=== PATIENT | female | born 2000 | race Caucasian/White ===

== ENCOUNTER 2022-01-01 13:42 | Observation (INO) | payer BC, OTHER, SELFPAY ==
[2022-01-01] VITALS (43 sets, daily range): BP systolic 114–141; BP diastolic 52–83; PULSE 98–125; TEMP 36.7; O2SAT 95–100
--- NOTE | 2022-01-01 14:18 | OBADM ---
This patient, Sonia Clifton, admitted to the OB room OB Post 115 for observation. Patient/family oriented to hospital policies and general routines including ID bracelet, bed and alarms, visiting hours, pain management, procedures, bathroom and other care routines, personal items, smoking policy, room service/diet, and visiting hours. Patient/Family are encouraged to report perceived risks to care and to ask questions if they do not understand what they are told or what they should do.
[2022-01-01 15:01] LABS: Add Urine Microscopic? YES; Appearance Urine Cloudy (Clear); Bacteria Urine Trace /hpf; Bilirubin Urine Negative (Negative); Blood Urine Negative (Negative); Color Urine Yellow (Yellow); Glucose Urine UA Negative (Negative); Ketones Urine 2+ mg/dL (Negative); Leukocyte Esterase Ur Negative LEU/UL (Negative); Mucus Urine Rare /lpf; Nitrate Urine Negative (Negative); Protein Urine Negative (Negative); RBC Urine 0-2 /hpf (0-2); Specific Grav Ur 1.016 (1.001-1.035); Squamous Epithelial Cell Urine Few /hpf (Few); Urobilinogen Urine Negative mg/dL (<2.0); WBC Urine 0-3 /hpf
--- NOTE | 2022-01-01 15:25 | PC.NURSE ---
Called Dr. Bassam Manning and gave report on pt including pt complaint of pelvic pressure, contractions, FHR, and Urine result. Orders for SVE and Fibronectin. Orders to d/c patient if he cervix is closed and orders to call him if cervix is not closed.
--- NOTE | 2022-01-01 16:12 | PC.NURSE ---
Called Dr. Bassam Manning with SVE. Orders for 1 dose of terbutaline
--- NOTE | 2022-01-01 16:26 | PC.NURSE ---
Held terbutaline due to patients HR of 120s and called Dr. Bassam Manning to see if he wanted it given still
[2022-01-01 16:44] LABS: Fetal Fibronectin Negative
--- NOTE | 2022-01-01 16:54 | PC.NURSE ---
paged Dr. Bassam Manning again. Have not heard back from.
--- NOTE | 2022-01-01 16:56 | PC.NURSE ---
Orders to hold terbulatine and give 10 mg Procardia.
[2022-01-01] MEDS: NIFEdipine 10 MG CAPSULE PO (17:00)
--- NOTE | 2022-01-01 18:27 | PC.NURSE ---
Dr. Bassam Manning called for update. Reported that Pt has had 1 contraction with irritability on monitor that is displaying for 15 minutes. Orders to d/c patient and to call tomorrow morning to schedule an appointment for this week. Orders for pelvic rest.
--- NOTE | 2022-01-04 07:18 | PM.OBTRLD ---
OB - Triage/Final Diagnosis Visit Information Reason for evaluation: threatened labor Comments/Additional reasons for admission: I have assessed the risk for this patient, Sonia Clifton, and determined that she would benefit from observation care. Evaluation Laboratory results: Laboratory Tests 01/01/22 01/01/22 14:08 16:08 Urine Color Yellow Urine Appearance Cloudy H Urine pH 7.0 Ur Specific [place] 1.016 Urine Protein Negative Urine Glucose (UA) Negative Urine Ketones 2+ H Ur Blood (Man) Negative Urine Nitrate Negative Urine Bilirubin Negative Urine Urobilinogen Negative Leukocyte Esterase Rfl Negative Urine RBC 0-2 Urine WBC 0-3 Ur Squamous Epith Cells Few Urine Bacteria Trace Urine Mucus Rare Fibronectin Negative
== END 2022-01-01 18:34 | disposition home or self-care (01) ==
PROVIDERS: Admitting Provider Obstetrics & Gynecology; Visit Provider Obstetrics & Gynecology
DX: O47.9 False labor, unspecified (principal); Z3A.00 Weeks of gestation of pregnancy not specified
CPT/HCPCS: 81001; 82731; A9270; G0378; G0379

== ENCOUNTER 2022-01-01 23:16 | Observation (INO) | payer BC, OTHER, SELFPAY ==
[2022-01-02] MEDS: DEXTROSE 5%/LACTATED RINGERS 1,000 ML 999 ML IV CONT (00:33)
[2022-01-02] MEDS: NIFEdipine 10 MG CAPSULE PO (00:33)
[2022-01-02 00:36] VITALS: BP 134/70; PULSE 104
--- NOTE | 2022-01-02 00:59 | PC.NURSE ---
0009- paged Dr. Barber [phone]- Dr. Barber returned page. informed of pt admission. pt c/o contractions that have continued since leaving here at 1830. pt increased fluids at home and laid on her side and still was uncomfortable. orders received for IV, 1 liter D5LR bolus, procardia 10mg po. if contractions subside and pt feeling better, order received to d/c home.
[2022-01-02 01:32] VITALS: BP 128/52; PULSE 120
--- NOTE | 2022-01-02 01:37 | OBADM ---
This patient, Sonia Clifton, admitted to the OB room OB Post 117 for observation. Patient/family oriented to hospital policies and general routines including ID bracelet, bed and alarms, visiting hours, pain management, procedures, bathroom and other care routines, personal items, smoking policy, room service/diet, and visiting hours. Patient/Family are encouraged to report perceived risks to care and to ask questions if they do not understand what they are told or what they should do.
[2022-01-02 01:44] VITALS: BMI 44.3
--- NOTE | 2022-01-25 12:32 | PM.OBTRLD ---
OB - Triage/Final Diagnosis Visit Information Comments/Additional reasons for admission: I have assessed the risk for this patient, Sonia Clifton, and determined that she would benefit from observation care. Final Diagnosis (1) False labor: Code(s): O47.9 - False labor, unspecified Status: Acute
== END 2022-01-02 02:15 | disposition home or self-care (01) ==
PROVIDERS: Admitting Provider Obstetrics & Gynecology; Visit Provider Obstetrics & Gynecology
DX: O47.03 False labor before 37 completed weeks of gestation, third trimester (principal); Z3A.34 34 weeks gestation of pregnancy
CPT/HCPCS: 96360; A9270; G0378; G0379; J7121

== ENCOUNTER 2022-02-02 05:01 | Inpatient (IN) | payer OTHER, SELFPAY ==
[2022-02-02] VITALS (205 sets, daily range): BP systolic 99–149; BP diastolic 21–97; PULSE 76–140; TEMP 36.3–37.3; O2SAT 76–100; BMI 45.6
--- NOTE | 2022-02-02 05:19 | LDADM ---
This patient, Sonia Clifton, was admitted to Labor/Delivery/Recovery 105 on 02/02/22 at 05:01. Plans for labor, pain management and were discussed with patient. Patient/family oriented to hospital policies and general routines including ID bracelet, bed and alarms, visiting hours, pain management, procedures, bathroom and other care routines, personal items, smoking policy, room service/diet and guest tray routines, infant security routines, and visiting hours. Patient/Family are encouraged to report perceived risks to care and to ask questions if they do not understand what they are told or what they should do. See OBIX for further documentation.
[2022-02-02] MEDS: LACTATED RINGERS 1,000 ML 125 ML IV CONT (05:59)
--- NOTE | 2022-02-02 06:03 | PM.IMHP ---
H&P: HPI History of Present Illness Date/Time: 02/02/22 06:03 Chief Complaint: this is a 21-year-old for induction at term Narrative: patient is a 21-year-old para 0 39 weeks gestation with last menstrual period of 05/04/2021, EDC of 1212. This is an induction for were convenience as her boyfriend is a deployed and was not able to get back for this procedure. Risks and benefits reviewed [facility] Social History Social History Smoking status: Never smoker Substance use: never Lack of Transportation: No Lack of Food: Never True Current Housing: I Do Not Have Housing Concerned About Future Housing: No Difficulty Paying Gas/Electric Bills: No Difficulty Paying for Meds: No Currently Unemployed: No Education: High School Diploma/GED Difficulty w/ Childcare or Family Care: No Spiritual care concerns: No Meds Home Medications and Allergies Home Medications Medication Instructions Recorded Confirmed Type No Home Medications 01/01/22 01/01/22 History Allergies Allergy/AdvReac Type Severity Reaction Status Date / Time morphine AdvReac Nausea and Verified 01/01/22 14:14 Vomiting Vital Signs Vital Signs - 24 hr 02/02/22 05:18 Oxygen Delivery Room Air Exam Const: General: cooperative, healthy appearing and comfortable Nutritional Appearance: average body habitus Orientation/consciousness: oriented to person, oriented to place and oriented to time HENMT: Head: normal to inspection Resp: Effort & Inspection: normal respiratory effort Cardio: Rate: regular rate Rhythm: regular rhythm Heart sounds: S1 normal heart sound present and S2 normal heart sound present GI: Inspection: normal to inspection ( fundus off) : Speculum Exam - Vagina: normal appearance of the vagina Speculum Exam - Cervix: normal appearance of the cervix ( cervix 3/75/1) Assessment and Plan Assessment and plan (1) Term : Code(s): Z34.90 - Encounter for supervision of normal , unspecified, unspecified trimester Status: Acute Plan medical induction of labor. Spontaneous vaginal delivery is expected. She is an epidural candidate
[2022-02-02 06:05] LABS: Basophils Percent Auto 0.1 % (0.2-1.2); Eosinophils Absolute Auto 0.1 K/mm3 (0-0.3); Eosinophils Percent Auto 0.7 % (0-4.4); Hematocrit 31.7 % (37.0-47.0); Hemoglobin 9.9 g/dL (12.0-15.0); Immature Granulocyte Absolute 0.06 K/mm3 (0.00-0.031); Immature Granulocyte Percent A 0.7 % (0-0.5); Lymphocytes Absolute Auto 1.95 K/mm3 (0.9-3.2); Mean Corpuscular HGB Conc 31.2 g/dl (32-36); Mean Corpuscular Hemoglobin 25.8 pg (26-34); Mean Corpuscular Volume 82.6 fl (80-100); Mean Platelet Volume 10.2 fl (7.4-10.4); Monocytes Absolute Auto 0.6 K/mm3 (0.1-0.6); Monocytes Percent Auto 6.5 % (2.6-8.5); Neutrophils Absolute Auto 5.8 K/mm3 (1.3-6.7); Platelet Count Result 217 k/mm3 (150-375); Red Blood Count 3.84 M/mm3 (4.2-5.4); White Blood Count 8.5 K/mm3 (4.5-10.0)
[2022-02-02] MEDS: AMPICILLIN 2 GM/NS 100 ML 2 GM/100 ML BAG IVPB (06:40)
--- NOTE | 2022-02-02 06:41 | P.PNAN_ITS ---
Anes - Eval Pre Procedure Procedure: labor epidural Date/Time: 02/02/22 06:41 Pre Op Diagnosis: Inductin of Labor Patient Data Age: 21 Gender: F Height: 1.57 m Weight: 113 kg Last Vital Signs O2 Del Method Room Air 02/02/22 05:18 Allergies Allergy/AdvReac Type Severity Reaction Status Date / Time morphine AdvReac Nausea and Verified 01/01/22 14:14 Vomiting Home Medications Medication Instructions Recorded Confirmed Type No Home Medications 01/01/22 01/01/22 History Laboratory Tests 02/02/22 02/02/22 05:55 05:55 WBC 8.5 K/mm3 K/mm3 (4.5-10.0) RBC 3.84 M/mm3 L M/mm3 (4.2-5.4) Hgb 9.9 g/dL L g/dL (12.0-15.0) Hct 31.7 % L % (37.0-47.0) MCV 82.6 fl fl (80-100) MCH 25.8 pg L pg (26-34) MCHC 31.2 g/dl L g/dl (32-36) RDW 14.0 % % (11.5-14.5) Plt Count 217 k/mm3 k/mm3 (150-375) MPV 10.2 fl fl (7.4-10.4) Immature Gran % (Auto) 0.7 % H % (0-0.5) Neut % (Auto) 69.0 % % (45.5-73.1) Lymph % (Auto) 23.0 % % (18.3-44.2) [place] % (Auto) 6.5 % % (2.6-8.5) Eos % (Auto) 0.7 % % (0-4.4) Baso % (Auto) 0.1 % L % (0.2-1.2) Lymph # (Auto) 1.95 K/mm3 K/mm3 (0.9-3.2) [place] # (Auto) 0.6 K/mm3 K/mm3 (0.1-0.6) Eos # (Auto) 0.1 K/mm3 K/mm3 (0-0.3) Baso # (Auto) 0.0 K/mm3 K/mm3 (0.0-0.1) Abs Immat Gran (auto) 0.06 K/mm3 H K/mm3 (0.00-0.031) Absolute Neuts (auto) 5.8 K/mm3 K/mm3 (1.3-6.7) Absolute Nucleated RBC 0.0 K/mm3 K/mm3 (0.0-0.012) Nucleated RBC % 0.0 % % (0.0-0.2) RPR Pending Patient hx anesthesia problems: none Family hx anesthesia problems: none Results Review: All pre-operative results and documents have been reviewed as part of the pre- operative evaluation. [facility] Past Medical History Medical History (Updated 02/02/22 @ 06:42 by Chantell Brennan CRNA) Asthma IBS (irritable bowel syndrome) Morbid obesity Social History Social History Smoking status: Never smoker Substance use: never Lack of Transportation: No Lack of Food: Never True Current Housing: I Do Not Have Housing Concerned About Future Housing: No Difficulty Paying Gas/Electric Bills: No Difficulty Paying for Meds: No Currently Unemployed: No Education: High School Diploma/GED Difficulty w/ Childcare or Family Care: No Spiritual care concerns: No Exam Day of Procedure 02/02/22 06:41
[2022-02-02] MEDS: OXYTOCIN 30 UNITS/NS 500 ML 30 UNITS/500 ML BAG 6 UNITS IV CONT (07:05)
[2022-02-02 09:04] LABS: Rapid Plasma Reagin Non-Reactive (NonReactive)
[2022-02-02] MEDS: AMPICILLIN 1 GM/NS 50 ML 1 GM/50 ML BAG IVPB ×3 (10:45→19:19)
--- NOTE | 2022-02-02 12:34 | PM.OBPNLAB ---
Pain Control Date/time seen: 02/02/22 12:34 Pain control: tolerating well and epidural Pelvic Exam Dilation (cm): 4 Effacement (%): 80 station: -2 Amniotic membrane status: Leaking
[2022-02-02] MEDS: diphenhydrAMINE HCl INJ 50 MG/ML VIAL 25 MG IV PUSH (19:19)
[2022-02-03] VITALS (50 sets, daily range): BP systolic 83–140; BP diastolic 24–89; PULSE 92–228; RESP 16–18; TEMP 36.4–36.9; O2SAT 93–100
[2022-02-03] MEDS: LACTATED RINGERS 1,000 ML 125 ML IV CONT (00:08)
[2022-02-03] MEDS: AMPICILLIN 1 GM/NS 50 ML 1 GM/50 ML BAG IVPB (00:08)
[2022-02-03] MEDS: ONDANSETRON INJ 4 MG/2 ML VIAL IV PUSH (00:09)
[2022-02-03] MEDS: CALCIUM CARBONATE (TUMS) 500 MG (200 MG ELEMENTAL) PO (01:50)
--- NOTE | 2022-02-03 03:31 | PM.OBPRVD ---
OB - Delivery Note Procedure Delivery date: 02/03/22 Events: Elective Induction of Labor Induction method: AROM Delivery augmentation: Pitocin Delivery monitor: External FHT and Internal Uterine Route of delivery: Episiotomy description: None Laceration Description: Perineal - 2nd Degree Delivery repair: vicryl Specimen: No Quantitative Blood Loss (ml): 159 Anesthesia type: Epidural Disposition: Floor Baby Date of : 02/03/22 Time of : 03:10 Weeks of gestation at delivery: 39 Infant gender: Female Weight (pounds): 11 Weight (ounces): 2 presentation: vertex position: Left Occiput Anterior Placenta delivery description: Spontaneous Cord Vessel Description: 3 Vessels and Delayed Cord Clamping score one minute: 8 score five minutes: 9
[2022-02-03] MEDS: METHYLERGONOVINE MALEATE 0.2 MG/ML VIAL IM (03:33)
[2022-02-03] MEDS: LIDOCAINE HCL 1% PF 30 ML VIAL (05:02)
[2022-02-03] MEDS: WITCH HAZEL 40 PADS 1 PAD TOPICAL (05:25)
[2022-02-03] MEDS: DOCUSATE SODIUM 100 MG CAPSULE PO ×2 (09:54→17:46)
[2022-02-03] MEDS: MULTIVIT/MIN/PREN/FOL AC/IRON TABLET 1 TAB PO (09:54)
[2022-02-03] MEDS: POLYSACCHARIDE IRON COMPLEX 150 MG CAPSULE PO ×2 (09:55→17:45)
[2022-02-03] MEDS: IBUPROFEN 600 MG TABLET PO (17:47)
--- NOTE | 2022-02-03 22:53 | PC.NURSE ---
02/03/22 at 1920 Patient viewed the discharge video Mother & Baby Care, The First Two Weeks . Patient was given the opportunity and encouraged to ask questions. Patient verbalized understanding of information shared and has been given the mother/baby guide for home reference.
[2022-02-04 01:30] VITALS: BP 131/76; PULSE 92; RESP 16; TEMP 36.6; O2SAT 98
--- NOTE | 2022-02-04 08:29 | P.DS_ITS ---
DS: Admitting Diagnosis Discharge Date Admitting Diagnosis term DS: Discharge Diagnosis Discharge Diagnosis (1) Term : Code(s): Z34.90 - Encounter for supervision of normal , unspecified, unspecified trimester Status: Acute DS: Summary Hospital Course Reason for hospitalization: patient was admitted for induction of labor at term for elective purposes. Hospital Course: She underwent spontaneous vaginal delivery on 02/03/2022 after a long drawn out labor with epidural anesthesia. The baby weighed 11lb 2oz and is doing well. She remained afebrile. She was up, breast-feeding, voiding without difficulty, ambulating, generally without complaints. Time Spent with Patient Time attestation: Total time spent providing and/or coordinating discharge services: Exam Const: General: cooperative, healthy appearing and comfortable Nutritional Appearance: overweight Orientation/consciousness: oriented to person, oriented to place and oriented to time HENMT: Head: normal to inspection Resp: Effort & Inspection: normal respiratory effort GI: Inspection: normal to inspection ( Fundus firm below the umbilicus) Discharge Plan Discharge Attending physician on discharge: Deon Michel Discharging Clinician: Deon Michel Patient Disposition: Home, Self-Care Activity: may shower, no straining and pelvic rest Diet: heart healthy Wound Care Instructions: follow printed instructions Patient Instructions: Antibiotic Form Stand Alone Forms: General Discharge Information Follow-up/Referrals: Deon Michel MD [Physician] - Discharge Medications: Continued No Home Medications Date of admission: 02/02/22 05:01 Primary Care Provider: PHYSICIAN,CERTIFIED MEDICAL DOSIMETRIST Admitting Provider: Deon Michel Attending physician on admission: Deon Michel Condition: Stable
--- NOTE | 2022-02-04 08:33 | PM.OBPNVD ---
OB - PN: Subj Subjective Date/time seen: 02/04/22 08:33 Patient comments: no complaints and pain well controlled baby status: doing well and nursing well OB - PN: Obj Data Labs CBC & Chem 7: 02/02/22 05:55 OB - PN A/P Plan day: 1 Plan: routine care, discharge home and follow up 6 weeks Time Spent With Patient Time: Total time spent is greater than 50% in coordination of care (as documented) at patient's floor/unit and/or counseling patient: Time with patient: less than 15 minutes Exam Const: General: cooperative, healthy appearing and comfortable Nutritional Appearance: overweight Orientation/consciousness: oriented to person, oriented to place and oriented to time Resp: Effort & Inspection: normal respiratory effort GI: Inspection: normal to inspection ( fundus firm below the umbilicus)
[2022-02-04] MEDS: MULTIVIT/MIN/PREN/FOL AC/IRON TABLET 1 TAB PO (09:04)
[2022-02-04] MEDS: POLYSACCHARIDE IRON COMPLEX 150 MG CAPSULE PO (09:04)
[2022-02-04] MEDS: DOCUSATE SODIUM 100 MG CAPSULE PO (09:05)
[2022-02-04 09:09] VITALS: BP 130/83; PULSE 87; RESP 18; TEMP 36.8; O2SAT 98
--- NOTE | 2022-02-04 12:25 | PC.NURSE ---
0800 Patient viewed the discharge video Mother & Baby Care, The First Two Weeks . Patient was given the opportunity and encouraged to ask questions. Patient verbalized understanding of information shared and has been given the mother/baby guide for home reference.
[2022-02-05 08:06] VITALS: BP 125/80; PULSE 83; RESP 20; TEMP 36.6; O2SAT 98
== END 2022-02-04 10:16 | disposition home or self-care (01) | DRG 807 ==
LOC: ANHLDR 05:19 → ANHOB2 02-03 06:00
PROVIDERS: Admitting Provider Obstetrics & Gynecology; Visit Provider Obstetrics & Gynecology
DX: O70.1 Second degree perineal laceration during delivery (principal); Z37.0 Single live birth; Z3A.39 39 weeks gestation of pregnancy
CPT/HCPCS: 36415; 85025; 86592; 86850; 86900; 86901; A9270; J0290; J1200; J2210; J2405; J2590; J2795; J7120

== ENCOUNTER 2022-02-08 14:39 | Outpatient (CLI) | payer OTHER, SELFPAY ==
--- NOTE | 2022-02-08 14:55 | PC.NURSE ---
Dr. Barber informed this pt came onto unit to have baby's bilirubin level checked and is requesting a blood count for herself to see if she is anemic. Informed MD that pt delivered on 02/03 with a pre Hgb of 9.9 and QBL in the 300's . Pt c/o being very pale and feeling more tired than what she feels she should be. Order received to draw H&H.
[2022-02-08 15:34] LABS: Hematocrit 29.7 % (37.0-47.0); Hemoglobin 9.3 g/dL (12.0-15.0)
== END 2022-02-08 14:40 | disposition home or self-care (01) ==
LOC: ANHOBOP 15:03
PROVIDERS: Obstetrics & Gynecology; Visit Provider Obstetrics & Gynecology
DX: D64.9 Anemia, unspecified (principal)
CPT/HCPCS: 36415; 85014; 85018

== ENCOUNTER 2023-04-19 21:13 | Emergency (ER) | payer OTHER, SELFPAY ==
--- NOTE | ~2023-04-19 | US_ITS ---
EXAMINATION: US pelvic complete DATE: 04/20/2023 02:34 INDICATION: Left lower quadrant pain, known left ovarian cyst TECHNIQUE: Multiple transabdominal sonographic images of the pelvis were obtained. COMPARISON: None. FINDINGS: The uterus measures 8.1 x 3.4 x 5.7 cm. The endometrial complex measures 9 mm. The right ov jesse measures 3.6 x 2.5 x 2.7 cm. The left ovary measures 5.3 x 4.4 x 5.6 cm and contains a 3.9 x 3.0 cm cystic lesion with suggestion of thin internal reticular echoes.. There is normal vascular flow in the ovaries. There is no free fluid in the pelvis. IMPRESSION: 1. No sonographic correlate for the patient's symptoms. 2. Cystic lesion of the left ovary, probable hemorrhagic cyst. Reviewed, dictated and finalized at location F. SHEET MAKER
--- NOTE | ~2023-04-19 | CT_ITS ---
EXAMINATION: CT abdomen pelvis w con INDICATION: Left lower quadrant pain TECHNIQUE: Computed tomographic images of the abdomen and pelvis were obtained after the administrati on of 100 cc of Omnipaque 350 intravenous contrast. The dose-length product (DLP) was 1272.74 mGy-cm. Automated exposure control and iterative reconstruction technique were employed. COMPARISON: None available FINDINGS: The lung bases are clear. The heart size is normal. The liver, spleen, pancreas, gallbladde r, and adrenal glands are normal. The kidneys are unremarkable. No pathologically enlarged abdominal or pelvic lymph nodes are identified. No free intraperitoneal gas or evidence of bowel obstruction. T here is a 3.3 cm cyst of the left adnexa. Changes of appendectomy are noted. IMPRESSION: 1. No CT correlate for the patient's symptoms. Reviewed, dictated and finalized at location F. EDICAL MANAGER
[2023-04-19 21:41] VITALS: BP 149/79; PULSE 84; RESP 15; TEMP 36.6; O2SAT 100
[2023-04-20 01:30] LABS: Appearance Urine Clear (Clear); Bilirubin Urine Negative (Negative); Blood Urine Negative (Negative); Color Urine Yellow (Yellow); Glucose Urine UA Negative (Negative); Ketones Urine Negative (Negative); Leukocyte Esterase Ur Negative LEU/UL (Negative); Nitrate Urine Negative (Negative); Protein Urine Negative (Negative)
[2023-04-20 01:31] LABS: Basophils Absolute Auto 0.1 K/mm3 (0.0-0.1); Basophils Percent Auto 0.7 % (0.2-1.2); Eosinophils Absolute Auto 0.1 K/mm3 (0-0.3); Eosinophils Percent Auto 1.2 % (0-4.4); Hematocrit 44.7 % (37.0-47.0); Hemoglobin 14.4 g/dL (12.0-15.0); Immature Granulocyte Absolute 0.02 K/mm3 (0.00-0.031); Immature Granulocyte Percent A 0.2 % (0-0.5); Lymphocytes Absolute Auto 4.04 K/mm3 (0.9-3.2); Mean Corpuscular HGB Conc 32.2 g/dl (32-36); Mean Corpuscular Volume 86.8 fl (80-100); Monocytes Absolute Auto 0.7 K/mm3 (0.1-0.6); Monocytes Percent Auto 6.3 % (2.6-8.5); Neutrophils Absolute Auto 5.5 K/mm3 (1.3-6.7); Neutrophils Percent Auto 52.6 % (45.5-73.1); Platelet Count Result 289 k/mm3 (150-375); Red Blood Count 5.15 M/mm3 (4.2-5.4); Red Cell Distribution Width 13.3 % (11.5-14.5); White Blood Count 10.4 K/mm3 (4.5-10.0)
[2023-04-20 01:37] LABS: Add Urine Microscopic? NO
--- NOTE | 2023-04-20 01:48 | ED.ABDPAIN ---
HPI - Abdominal Pain General Chief Complaint: Abdominal Pain <HARRIS Kaufman Last Filed: 04/20/23 04:02> Stated Complaint: abdominal pain <HARRIS Kaufman Last Filed: 04/20/23 04:02> Time Seen by Provider: 04/20/23 01:25 <HARRIS Kaufman Last Filed: 04/20/23 04:02> Source: patient <HARRIS Kaufman Last Filed: 04/20/23 04:02> Mode of arrival: ambulatory <HARRIS Kaufman Filed: 04/20/23 04:02> Limitations: no limitations <HARRIS Kaufman Last Filed: 04/20/23 04:02> History of Present Illness HPI narrative: Patient is a 22-year-old female who presents the ED with report of left lower quadrant abdominal pain. Patient reports she has a known large left-sided ovarian cyst. Over the past several days she has been having increased pain in her left lower abdomen. She saw Dr. Baltazar last week and he was reportedly able to feel the ovarian cyst through the pelvic exam. She is scheduled to have a repeat ultrasound performed on Saturday, but states pain became significantly worse today which prompted her presentation. She has not tried anything for the pain. Denies nausea, vomiting, diarrhea, constipation, fevers, vaginal bleeding, dizziness, lightheadedness, syncope, dysuria, hematuria. <HARRIS Kaufman Last Filed: 04/20/23 04:02> Related Data Home Medications: Home Medications Medication Instructions Recorded Confirmed No Home Medications 01/01/22 01/01/22 <HARRIS Kaufman Last Filed: 04/20/23 04:02> Allergies/Adverse Reactions: Allergies Allergy/AdvReac Type Severity Reaction Status Date / Time morphine AdvReac Nausea and Verified 04/19/23 21:14 Vomiting <HARRIS Kaufman Last Filed: 04/20/23 04:02> Review of Systems Review of Systems: CONSTITUTIONAL: Denies fever, chills, or sweats. GASTROINTESTINAL: see HPI. GENITOURINARY: Denies dysuria or hematuria. <Sherry Miles PA-C - Last Filed: 04/20/23 04:02> All systems reviewed & are unremarkable except as noted in HPI and below <Sherry Miles PA-C - Last Filed: 04/20/23 04:02> [facility] Past Medical History Medical History: Medical History Asthma IBS (irritable bowel syndrome) Morbid obesity <Sherry Miles PA-C - Last Filed: 04/20/23 04:02> Social History Social History: Social History Smoking status: Never smoker Substance use: never Lack of Transportation: No Lack of Food: Never True Current Housing: I Do Not Have Housing Concerned About Future Housing: No Difficulty Paying Gas/Electric Bills: No Difficulty Paying for Meds: No Currently Unemployed: No Education: High School Diploma/GED Difficulty w/ Childcare or Family Care: No Spiritual care concerns: No <Sherry Miles PA-C - Last Filed: 04/20/23 04:02> Exam Narrative: GENERAL: Well appearing, morbidly obese with BMI of 43.1, non-toxic, in no acute distress. HEAD: Normocephalic, atraumatic. RESPIRATORY: Airway patent, respirations nonlabored. Clear to auscultation bilaterally, no rales, rhonchi, wheezing. CARDIOVASCULAR: Regular rate and rhythm without murmurs, rubs, or gallops. ABDOMINAL: Soft, mild tenderness to palpation throughout left mid and lower abdomen, nondistended. Normoactive BS. MUSCULOSKELETAL: Moves all extremities. No gross deformities. SKIN: Warm, dry, normal color. NEURO: A&O X3. Speech clear. PSYCHIATRIC: Appropriate mood and affect. Normal interaction. <Sherry Miles PA-C - Last Filed: 04/20/23 04:02> Course Vital Signs Vital signs: Vital Signs Temperature 36.6 C 04/19/23 21:41 Pulse Rate 84 04/19/23 21:41 Respiratory Rate 15 04/19/23 21:41 Blood Pressure 149/79 H 04/19/23 2
[2023-04-20 03:39] LABS: Alanine Aminotransferase 34 U/L (6-35); Albumin Level 4.2 g/dL (3.5-5.1); Alkaline Phosphatase 65 U/L (38-126); Anion Gap 8 mmol/L (8-16); Aspartate Amino Transferase 26 U/L (14-36); Blood Urea Nitrogen 13 mg/dL (7-17); Calcium 9.2 mg/dL (8.4-10.2); Carbon Dioxide 26 mmol/L (22-30); Chloride 105 mmol/L (98-107); Estimated CRCL calculation 144 ml/min; Estimated Glomerular Filt Rate > 60; Glucose 104 mg/dL (65-110); Lipase 89 U/L (23-300); Potassium 4.1 mmol/L (3.4-5.0); Sodium 139 mmol/L (137-145)
[2023-04-20 06:45] VITALS: BP 128/66; PULSE 84; RESP 15; O2SAT 99
== END 2023-04-20 06:46 | disposition home or self-care (01) ==
PROVIDERS: Emergency Provider Emergency Medicine
DX: N83.202 Unspecified ovarian cyst, left side (principal); J45.909 Unspecified asthma, uncomplicated; K58.9 Irritable bowel syndrome, unspecified; E66.01 Morbid (severe) obesity due to excess calories; Z68.41 Body mass index [BMI] 40.0-44.9, adult
CPT/HCPCS: 36415; 74177; 76856; 80053; 81003; 81025; 83690; 85025; 99284; Q9967

== ENCOUNTER 2023-04-26 00:11 | Day surgery (SDC) | payer OTHER, SELFPAY ==
[2023-04-23 14:13] VITALS: BMI 43.0
--- NOTE | 2023-04-23 14:20 | PC.NURSE ---
Report to the Outpatient Waiting Room, entrance under the green pavilion located off [facility], at time 1:30 on date 04/26/23. Planned Procedure Time: 3:30. Time changes happen often and if your time is changed the preop area will call you the afternoon before. - You and your visitor will be asked to self-screen and do not enter if you have any COVID symptoms. - A mask is optional within the hospital at this time. Patients may have clear liquids (water, carbonated beverages, clear teas, apple juice) until 3 hours prior to surgery (12:30) with a maximum of 20 ounces. - No food from midnight until time of surgery Take the following medications with a SIP of water the morning of surgery: N/A DO NOT STOP ANY OF YOUR OTHER PRESCRIPTION MEDICATIONS PRIOR TO SURGERY ?EXCEPT THE FOLLOWING Medications to discontinue per physician: N/A Date to take last dose: N/A Please no make-up, nail macedonian, hairspray, perfume, deodorant, or body powder the day of surgery. No jewelry (including any body piercings) or valuables the day of surgery, leave them at home. Please take a shower or bath the night before, or the morning of, surgery with an antibacterial soap. Wear comfortable, loose fitting clothing. - Jewelry must be removed prior to entering the operating room. Rings and piercings that are not removed may be cut off. - The hospital will not accept responsibility for valuables. - Please leave all valuables, including medications, at home the day of surgery. If you are going home after surgery, a licensed party bus driver must drive you home. - NO public transportation without another adult if you receive anesthesia. - We recommend that an adult stay with you for 24 hours following discharge. - We also recommend that you do not drive, make important decision, drink alcoholic beverages, or take any drugs that were not prescribed by your health care provider for at least 24 hours after your discharge time. Follow any additional instructions given to you from your surgeon. If you or anyone in your household have experienced Covid symptoms in the past week, please notify your surgeon or the nurse liaison at the phone number below for possible testing. Telephone instructions given to PT Lexus JANE and asked if any additional questions and then verbalized understanding. Patient advised to call surgeon office or pre surgery nurse liaison [phone] if any additional questions.
--- NOTE | 2023-04-25 06:31 | P.HP_ITS ---
H&P: HPI History of Present Illness Date/Time: 04/25/23 06:31 Chief Complaint: pelvic pain and complex left ovarian cyst Narrative: 22-year-old female admitted for laparoscopy and left ovarian cystectomy seconda ry to complex left ovarian cyst. She has imaging shows complex ovarian cyst. Risks and benefits reviewed detail including not exclusive of , aspiration bleeding transfusion perforation injury to bowel, bladder, ureters, or other internal organs with need for laparotomy. She received the ACOG handout entitled laparoscopy. She had all questions answered. She asked to proceed PMFSH Past Medical History Medical History Asthma IBS (irritable bowel syndrome) Morbid obesity Social History Social History Smoking status: Never smoker Alcohol intake: never Substance use: never Substance use type: does not use Lack of Transportation: No Lack of Food: Never True Current Housing: I Do Not Have Housing Concerned About Future Housing: No Difficulty Paying Gas/Electric Bills: No Difficulty Paying for Meds: No Currently Unemployed: No Education: High School Diploma/GED Difficulty w/ Childcare or Family Care: No Living arrangements: with family Spiritual care concerns: No Meds Home Medications and Allergies Home Medications Medication Instructions Recorded Confirmed Type No Home Medications 01/01/22 04/23/23 History Allergies Allergy/AdvReac Type Severity Reaction Status Date / Time morphine AdvReac Nausea and Verified 04/23/23 14:13 Vomiting Exam Const: General: cooperative, healthy appearing and comfortable Nutritional Appearance: average body habitus Orientation/consciousness: oriented to person, oriented to place and oriented to time HENMT: Head: normal to inspection Resp: Effort & Inspection: normal respiratory effort Cardio: Rate: regular rate Rhythm: regular rhythm Heart sounds: S1 normal heart sound present and S2 normal heart sound present GI: Inspection: normal to inspection : External Female Exam: normal external appearance Speculum Exam - Vagina: normal appearance of the vagina Speculum Exam - Cervix: normal appearance of the cervix Bimanual exam- vagina & uterus: non-tender Bimanual Exam- Adnexa, other: tender on the left Assessment and Plan Assessment and plan (1) Pelvic pain: Code(s): R10.2 - Pelvic and perineal pain Status: Acute (2) Left ovarian cyst: Code(s): N83.202 - Unspecified ovarian cyst, left side Status: Acute Plan laparoscopy with left ovarian cystectomy
--- NOTE | 2023-04-25 14:59 | WPDANESEPPF ---
Anes - Initial Pre Proc Eval Procedure: Operation Date: 04/26/23 15:30 Proposed Procedures p Diagnostic Laparoscopy with Left Ovarian Cystectomy - Deon Manning MD Date/Time: 04/25/23 14:59 Surgeon: Deon Manning MD Pre Op Diagnosis: Pelvic Pain, Left Ovarian Cyst Patient Data Age: 22 Gender: F Height: 1.57 m Weight: 106.6 kg Allergies Allergy/AdvReac Type Severity Reaction Status Date / Time morphine AdvReac Nausea and Verified 04/23/23 14:13 Vomiting Home Medications Medication Instructions Recorded Confirmed Type hydrocodone 5 mg-acetaminophen 325 1 tablet PO Q4H PRN pain #20 tabs 04/26/23 Rx mg tablet Patient hx anesthesia problems: none Family hx anesthesia problems: none Results Review: All pre-operative results and documents have been reviewed as part of the pre-operative evaluation. [facility] Past Medical History Medical History Asthma IBS (irritable bowel syndrome) Morbid obesity Social History Social History Smoking status: Never smoker Alcohol intake: never Substance use: never Substance use type: does not use Lack of Transportation: No Lack of Food: Never True Current Housing: I Do Not Have Housing Concerned About Future Housing: No Difficulty Paying Gas/Electric Bills: No Difficulty Paying for Meds: No Currently Unemployed: No Education: High School Diploma/GED Difficulty w/ Childcare or Family Care: No Living arrangements: with family Spiritual care concerns: No Anes - Eval Final PreProcedure Day of Procedure 04/25/23 14:59 Patient weight: morbidly obese Heart: regular rate and rhythm Lungs: clear to auscultation Airway: Mallampati scale class II Neurological: alert and oriented Last oral intake: >/= 8 hours ASA classification: III Emergent: no Anesthetic plan: proceed Anesthesia type and monitoring: general ETT and standard monitoring Results Review: All pre-operative results and documents have been reviewed as part of the pre-operative evaluation. Informed Consent: The patient's anesthetic plan and its attendant risks and benefits were discussed with the patient/family/POA. Questions were solicited and answers provided to the satisfaction of the patient/family/POA.
[2023-04-26] VITALS (9 sets, daily range): BP systolic 106–142; BP diastolic 58–92; PULSE 76–103; RESP 14–22; TEMP 36.3–37.1; O2SAT 94–100
--- NOTE | 2023-04-26 06:19 | WPDHPUPDATE1 ---
History and Physical Update Update Date/Time: 04/26/23 06:19 History and Physical has been reviewed, including an updated exam of the patient. There are NO changes in the patient's condition. Risks, benefits, and alternatives have been discussed and questions answered. Patient agrees to proceed with procedure.
[2023-04-26] MEDS: ACETAMINOPHEN 500 MG TABLET 1000 MG PO (13:30)
[2023-04-26] MEDS: LACTATED RINGERS 1,000 ML 30 ML IV CONT ×2 (13:30→17:00)
[2023-04-26] MEDS: KETOROLAC 15 MG/ML VIAL (*BKC) IV PUSH (13:30)
--- NOTE | 2023-04-26 16:24 | P.OP_ITS ---
Procedure Note - Detailed Date of Procedure 04/26/23 Pre-op Diagnosis Pelvic Pain, Left Ovarian Cyst Post-op Diagnosis Same (With endometriosis) Procedure Performed laparoscopic destruction left ovarian cyst and destruction of endometriosis Surgeon Deon Manning MD Anesthesia General Indications 22-year-old female with left ovarian cyst and pelvic pain Findings normal-appearing right ovary and tube. Normal-appearing left tube normal- appearing uterus. A hemorrhagic cyst on the right which was drained of hemorrhagic and serous fluid. Small areas of endometriosis were seen in the cul-de-sac and were cauterized. Description of Procedure Patient was prepped draped in the normal sterile fashion placed in the dorsal lithotomy position. Under excellent general trach anesthesia weighted speculum placed in posterior fornix vagina. Anterior lip of the cervix grasped with single-tooth tenaculum. Blackwell's cannula inserted the cervix attached to the single-tooth. This would be used later for uterine manipulation. The bladder was emptied of clear urine. The weighted speculum was removed. The gloves were changed. An infraumbilical incision made in the Veress needle passed in the abdomen. Abdomen filled with CO2 gas [id number]. The 5mm trocar advanced under direct visualization assuring no injury. The patient placed in Trendelenburg and a suprapubic incision made. The 5mm trocar advanced under direct visualization assuring no injury. The above findings were seen the left ovarian cyst was opened in linear fashion and drained of serosanguineous fluid until clear. Small areas of endometriosis were seen in the cul-de-sac and these were cauterized at 35 w per 2nd with monopolar cautery. Irrigation undertaken to clear. The appendix appeared surgically absent. The liver and gallbladder edge appeared within normal limits and no other abnormalities were seen. The lower site removed. The gas removed from the abdomen. The upper site removed. The incisions closed with 4 Monocryl glue. The instruments removed from the vagina the patient was awakened. She went to recovery in satisfactory condition. All sponge, needle, instrument counts were correct. There were no immediate complications Estimated Blood Loss 5 Drains No Packing No Pathology None sent Complications No immediate complications Condition Stable Disposition PACU
[2023-04-26] MEDS: MIDAZOLAM HCL (*CRX) 2 MG/2 ML VIAL IV PUSH (16:43)
[2023-04-26] MEDS: fentaNYL CITRATE INJ (*CRX) 100 MCG/2 ML VIAL 25 MCG IV PUSH ×2 (17:00→17:02)
== END 2023-04-26 18:27 | disposition home or self-care (01) ==
PROVIDERS: Visit Provider Obstetrics & Gynecology
PROC: (CPT 49320; principal; 2023-04-26 15:30)
DX: N83.202 Unspecified ovarian cyst, left side (principal); J45.909 Unspecified asthma, uncomplicated; K58.9 Irritable bowel syndrome, unspecified; E66.01 Morbid (severe) obesity due to excess calories; Z68.41 Body mass index [BMI] 40.0-44.9, adult; Z79.891 Long term (current) use of opiate analgesic
CPT/HCPCS: 58662; 36415; 86850; 86900; 86901; A9270; J1100; J1885; J2250; J2405; J2704; J3010; J7030; J7120